=== PATIENT | female | born 2000 | race Caucasian/White ===

== ENCOUNTER 2025-07-30 13:45 | Emergency (ER) | payer OTHER, SELFPAY ==
[2025-07-30 13:47] VITALS: BP 131/85
[2025-07-30 14:19] LABS: Hematocrit 39.7 % (37.0-47.0); Hemoglobin 13.8 g/dL (12.0-16.0); Mean Corp Hgb Conc. 34.8 g/dL (33.0-37.0); Mean Corpuscular Volume 81.2 fL (81.0-99.0); Nucleated Red Blood Cells % 0 %; Platelet Count 246 10^3/uL (130-400); Red Cell Dist. Width 11.9 % (11.5-14.5)
[2025-07-30 14:24] LABS: HCG, Serum Qualitative Screen Negative
[2025-07-30 14:31] LABS: ALT (SGPT) 18 U/L (0-35); AST (SGOT) 20 U/L (14-36); Albumin 4.4 g/dl (3.5-5.0); Alkaline Phosphatase 45 U/L (38-126); Blood Urea Nitrogen 8 mg/dl (7-17); Calcium 9.1 mg/dl (8.4-10.2); Carbon Dioxide 21 mmol/L (22-30); Chloride 104 mmol/L (98-107); Glucose 96 mg/dl (70-99); Lipase 38 U/L (23-300); Potassium 3.8 mmol/L (3.5-5.1); Sodium 134 mmol/L (135-145); Total Protein 7.1 g/dl (6.3-8.2); eGFR > 60.00
[2025-07-30] MEDS: TORADOL 15 MG IV (16:14)
[2025-07-30] MEDS: ZOFRAN 4 MG IV (16:14)
[2025-07-30] MEDS: OMNIPAQUE 50 ML PO (16:14)
[2025-07-30] MEDS: NSS 1000 IV ×2 (16:15→18:52)
--- NOTE | 2025-07-30 16:24 | ED.GENMED ---
History of Present Illness
<JENNIFER Rudolph Last Filed: 07/30/25 18:02>
General
Chief Complaint: Abdominal Symptoms
Source: patient
Exam Limitations: none
Time Seen by Provider: 07/30/25 14:26
Nursing documentation reviewed up to this point in time: agreed with
History of Present Illness
History of Present Illness:
see MDM
Past History
<JENNIFER Rudolph Last Filed: 07/30/25 18:02>
Past History
ED Past Medical History: None
ED Past Surgical History: Tonsilectomy
Social History
Tobacco: Non-smoker
Alcohol: None
Drug: None
Personal: Single
Living: with family
Employment: Employed
Review of Systems
<JENNIFER Rudolph Last Filed: 07/30/25 18:02>
Review of Systems
Allergies reviewed?: Yes
All Other Systems: Not applicable
Phy Exam
<JENNIFER Rudolph Last Filed: 07/30/25 18:02>
Physical Exam
Physical Exam:
GENERAL: Alert , in no apparent distress
EYE: pupils equal and reactive
NECK: Supple
ENT: o/p clr, mmm.
CARDIAC: tachycardic
LUNGS: Clear breath sounds bilaterally, no acute respiratory distress, no wheezes/rales/rhonchi
ABDOMEN: Soft, flat, mild lower abd tendernes, no r/g, no cvat, normal bowel sounds
NEUROLOGICAL: Alert and oriented, no focal neuro deficits
SKIN: Warm and dry, skin intact.
MUSCULOSKELETAL: No edema, well perfused. neg veronica's sign
PSYCH: Normal and appropriate interaction.
Course
<JENNIFER Rudolph Last Filed: 07/30/25 18:02>
Orders/Labs/Results
Orders:
Orders
07/30/25 13:51
Test Result ONCE
07/30/25 13:56
Complete Blood Count/With Diff Urgent
Comprehensive Metabolic Panel Urgent
HCG, Serum Qualitative Screen Urgent
Comment: Notify provider if positive test present
Lactic Acid Q4H
Comment: ON ICE, CANCEL 2ND ORDER IF FIRST LACTIC ACID LEVEL <2
Lipase Urgent
07/30/25 14:49
0.9% Sodium Chloride 1000 ml [Nss] 1,000 ml IV BOLUS
Iohexol [Omnipaque] See Protocol PO NOW STA
Ketorolac [Toradol] 15 mg IV NOW STA
Ondansetron Injectable [Zofran] 4 mg IV NOW STA
07/30/25 14:50
CT Abd/pel W Iv And Oral Contr Urgent
Comment:
Reason For Exam: lower abd pain, fever, vomiting, diarrhea
07/30/25 17:15
Urinalysis Reflex To Culture Urgent
Date Specimen was Collected: 07/30/25
Time Specimen was Collected: 15:49
Urine Microscopic Reflex Cult Urgent
Urine Culture Urgent
MANI Source: U
Specimen Description:
Date Specimen was Collected: 07/30/25
Time Specimen was Collected: 15:49
07/30/25 17:17
Norovirus by PCR Urgent
MANI Source: Feces/Stool
Specimen Description:
Date Specimen was Collected: 07/30/25
Time Specimen was Collected: 17:16
STOOL [C difficile Antigen & Toxins] Urgent
MANI Source: Feces/Stool
Specimen Description:
Date Specimen was Collected: 07/30/25
Time Specimen was Collected: 17:16
Stool Culture Urgent
MANI Source: Feces/Stool
Specimen Description:
Date Specimen was Collected: 07/30/25
Time Specimen was Collected: 17:16
07/30/25 17:57
0.9% Sodium Chloride 1000 ml [Nss] 1,000 ml IV BOLUS
Abnormal Lab Results
07/30/25 07/30/25
13:56 17:15
Absolute Lymphs (auto) 1.1 L 10^3/uL
(1.2-3.4)
Absolute Monos (auto) 0.8 H 10^3/uL
(0.1-0.6)
Monocytes % 15.2 H %
(1.7-9.3)
Sodium 134 L mmol/L
(135-145)
Carbon Dioxide 21 L mmol/L
(22-30)
Urine Ketones 3+ A
(Negative)
Urine RBC 3-6 A /HPF
(0-2)
Urine Bacteria (Reflex) Moderate A
(Negative)
Urine Albumin (Reflex) 2+ A
(Neg - Trace)
07/30/25 13:56
07/30/25 13:56
Vital Signs
Initial and Last Documented VS:
Initial Vital Signs
Temp Pulse Resp BP Pulse Ox
38.6 C H 137 16 131/85 97
07/30/25 13:47 07/30/25 13:47 07/30/25 13:47 07/30/25 13:47 07/30/25 13:47
Last Documented Vital Signs
Temp Pulse Resp BP Pulse Ox
36.9 C 100 15 131/85 97
07/30/25 17:10 07/30/25 17:00 07/30/25 17:00 07/30/25 13:47 07/30/25 17:00
<Samuel Lombardi MD - Last Filed: 07/30/25 20:02>
Orders/Labs/Results
Orders:
Orders
07/30/25 13:51
Test Result ONCE
07/30/25 13:56
Complete Blood Count/With Diff Urgent
Comprehensive Metabolic Panel Urgent
HCG, Serum Qualitative Screen Urgent
Comment: Notify provider if positive test present
Lactic Acid Q4H
Comment: ON ICE, CANCEL 2ND ORDER IF FIRST LACTIC ACID LEVEL <2
Lipase Urgent
07/30/25 14:49
0.9% Sodium Chloride 1000 ml [Nss] 1,000 ml IV BOLUS
Iohexol [Omnipaque] See Protocol PO NOW STA
Ketorolac [Toradol] 15 mg IV NOW STA
Ondansetron Injectable [Zofran] 4 mg IV NOW STA
07/30/25 14:50
CT Abd/pel W Iv And Oral Contr Urgent
Comment:
Reason For Exam: lower abd pain, fever, vomiting, diarrhea
07/30/25 17:15
Urinalysis Reflex To Culture Urgent
Date Specimen was Collected: 07/30/25
Time Specimen was Collected: 15:49
Urine Microscopic Reflex Cult Urgent
Urine Culture Urgent
MANI Source: U
Specimen Description:
Date Specimen was Collected: 07/30/25
Time Specimen was Collected: 15:49
07/30/25 17:17
Norovirus by PCR Urgent
MANI Source: Feces/Stool
Specimen Description:
Date Specimen was Collected: 07/30/25
Time Specimen was Collected: 17:16
STOOL [C difficile Antigen & Toxins] Urgent
MANI Source: Feces/Stool
Specimen Description:
Date Specimen was Collected: 07/30/25
Time Specimen was Collected: 17:16
Stool Culture Urgent
MANI Source: Feces/Stool
Specimen Description:
Date Specimen was Collected: 07/30/25
Time Specimen was Collected: 17:16
07/30/25 17:57
0.9% Sodium Chloride 1000 ml [Nss] 1,000 ml IV BOLUS
Abnormal Lab Results
07/30/25 07/30/25
13:56 17:15
Absolute Lymphs (auto) 1.1 L 10^3/uL
(1.2-3.4)
Absolute Monos (auto) 0.8 H 10^3/uL
(0.1-0.6)
Monocytes % 15.2 H %
(1.7-9.3)
Sodium 134 L mmol/L
(135-145)
Carbon Dioxide 21 L mmol/L
(22-30)
Urine Ketones 3+ A
(Negative)
Urine RBC 3-6 A /HPF
(0-2)
Urine Bacteria (Reflex) Moderate A
(Negative)
Urine Albumin (Reflex) 2+ A
(Neg - Trace)
07/30/25 13:56
07/30/25 13:56
Vital Signs
Initial and Last Documented VS:
Initial Vital Signs
Temp Pulse Resp BP Pulse Ox
38.6 C H 137 16 131/85 97
07/30/25 13:47 07/30/25 13:47 07/30/25 13:47 07/30/25 13:47 07/30/25 13:47
Last Documented Vital Signs
Temp Pulse Resp BP Pulse Ox
36.9 C 100 15 131/85 97
07/30/25 17:10 07/30/25 17:00 07/30/25 17:00 07/30/25 13:47 07/30/25 17:00
Ilyalt;Miley Real PA-C - Last Filed: 07/30/25 18:02>
MDM/Problems Addressed
Differential Diagnosis Includes:
see MDM
MDM/Problems Addressed:
Note:
CHIEF COMPLAINT(S)
Diarrhea, vomiting, nausea, and febrile episodes.
HISTORY OF PRESENT ILLNESS
The patient is a 25 y/o female with no known relevant past medical history, presenting with symptoms of diarrhea and vomiting. The diarrhea began on 2 nights ago with diarrhea only, characterized as watery, yellow-green, and slimy, eventually
turning nearly black after 1 dose of pepto. next day, the patients symptoms transitioned predominantly to vomiting, with episodes totaling approximately five times. The patient reports persistent nausea. She has experienced low-grade fever, peaking
at 100�F, and has taken one dose of Tylenol, which was vomited. The abdominal symptoms include cramping in the lower part of the abdomen, particularly during bowel movements. The last menstrual period was around the of the month, with
regularity occurring every other month. There are no reports of recent travel abroad, antibiotic use, or significant illness exposure. 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
PAST SURGICAL HISTORY
The patient denies any past abdominal surgeries.
SOCIAL DETERMINANTS AFFECTING HEALTH
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
PLAN
1. Initiate intravenous fluid therapy for hydration.
2. Administer intravenous anti-emetic medication.
3. Perform a computed tomography (CT) scan of the abdomen with oral contrast if tolerated; adjust if the patient experiences emesis.
4. Collect a stool sample if the patient has a bowel movement during the visit.
5. Obtain urine samples to exclude other causes of symptoms.
DIFFERENTIAL DIAGNOSIS
The Differential Diagnosis includes, in no particular order and is not limited to:
1. Gastroenteritis
2. Food poisoning
3. Viral infection (e.g., norovirus)
4. Bacterial enteritis (e.g., Salmonella, Shigella)
5. Inflammatory bowel disease
6. Diverticulitis
7. Appendicitis
8. Urinary tract infection
9. Peptic ulcer disease
10. Gallbladder disease
25-year-old healthy female presents for nausea vomiting diarrhea and a fever over the last 48 hours with localized lower abdominal discomfort in the last 12 hours. Seems to be across her lower abdomen. She is not having any urinary symptoms. The
vomiting and diarrhea has subsided but she feels wiped out and dehydrated. Patient was febrile on arrival normotensive, nontoxic-appearing with mild to moderate lower abdominal tenderness and she did have tenderness over McBurney's point region.
There is no upper abdominal tenderness. She did not look significantly dehydrated was taking sips of water. She was given Toradol and a liter of fluid and had screening labs with a normal white count, normal electrolytes, urine with ketones. Her
temperature came down to 98.4, I ordered a second liter of fluid. She is waiting to go for CT scan. I suspect she has viral gastroenteritis. I did order stool studies however she has not had any diarrhea here. Suspect she will be able to be
discharged pending CT scan. Signed out to Dr. lombardi.
<Miley Real PA-C - Last Filed: 07/30/25 18:02>
*Pulse Oximetry
SaO2: 97
Oxygen Mode of Delivery: Room air
ED Attending Note
<Miley Real PA-C - Last Filed: 07/30/25 18:02>
-
Portions of this chart may have been created with voice recognition software.� Occasional wrong word or��sound alike� substitutions may have occurred due to the inherent limitations of voice recognition software.
<Samuel Lombardi MD - Last Filed: 07/30/25 20:02>
ED Attending Note
Patient seen and examined by attending physician: Yes
ED Attending Note:
I have seen and evaluated the patient with a [id number] encounter. I have spoken to the advance practicer provider and involved in the medical history, the physical exam, medical decision making.
Evaluation and management service: agree unless noted differently below.
Results interpretation: agree unless noted differently below.
Focused HPI: 25-year-old female with no significant chronic medical issues presents to the ER with her mother for evaluation of GI symptoms. Symptoms have been ongoing for the past few days she reports abdominal discomfort in the lower abdomen
associated with some vomiting and diarrhea. Febrile today. Came to the ER for assessment.
Physical exam: Awake and alert not in distress. Tachycardic but otherwise normal vitals. She was febrile in triage but defervesced by my assessment. Her abdomen is soft and nondistended mildly tender right slightly greater than left lower
quadrants. No palpable masses.
Medical Decision Makin-year-old female presents for lower abdominal pain associate with nausea, vomiting, diarrhea and fever. Labs were sent off including a CBC and a CMP which showed no clinically significant abnormalities. hCG is negative.
Urinalysis contaminated but no pyuria to suggest infection. We are awaiting results of CT.
CT reviewed shows findings consistent with gastroenteritis, normal-appearing appendix and certainly this fits with overall clinical picture. Patient remains well on clinical reassessment, vital signs within acceptable range. Tolerating p.o.
Stable for discharge advised regarding bland diet will prescribe some Zofran as needed. Spoke about follow-up plan and return precautions and all questions answered.
Discharge Plan
Departure
Patient Disposition: Home (Routine Discharge)
Date of Disposition: 07/30/25
Time of Disposition: 20:01
Patient with high blood pressure during this ER visit?: No
Discharge Problem:
Gastroenteritis
Instructions: [place] Diet, Nausea and Vomiting, Adult (DC)
Prescriptions:
New
ondansetron 4 mg tablet,disintegrating
4 mg PO TIDPRN PRN (Reason: nausea/vomiting) Qty: 14 0RF
Referrals:
Portia Retana PA-C [Family Provider, Family Practice] - Follow up in 1 week
Activity Restrictions/Additional Instructions:
Thank you for visiting the Emergency Department at [facility].
1. Please schedule a follow up appointment as directed. Call first thing tomorrow morning to make an appointment.
2. If indicated, please take your medications as instructed and indicated on discharge paperwork.
3. If any of your symptoms do not improve, or persist, or become more severe within 6-12 hours, please return to the emergency department for further care.
4. Please return to the emergency department if you develop a headache, neck pain/stiffness, fever greater than 100.4F, chest pain, shortness of breath, persistent nausea, vomiting, slurred speech, difficulty walking, numbness/tingling, weakness,
signs of infection or any other symptoms that are worrisome to you.
Please call [phone] if you have any questions.
Interventions
Interventions:
*Risk Screen - Suicide Last Done: 07/30/25 13:47
*Neglect/Abuse Screening Last Done: 07/30/25 13:47
*ED- Fall Risk Assessment Last Done: 07/30/25 16:20
AI-Sksram-Yxkaktsbbz Assessment Last Done: 07/30/25 16:20
Discharge Date and Time
Print Language: ETHIOPIAN
[2025-07-30 17:50] LABS: Urine Character Clear (Clear)
[2025-07-30 18:57] LABS: Urine Squamous Cell >20 /LPF (Few)
[2025-07-30 20:14] VITALS: BP 113/66
== END 2025-07-30 20:20 | disposition home or self-care (01) ==
LOC: EMR 13:45
PROVIDERS: Emergency Medicine; Physician Assistant; EMERGENCY PHYSICIAN Emergency Medicine; FAMILY PHYSICIAN Physician Assistant Medical
DX: K52.9 Noninfective gastroenteritis and colitis, unspecified (principal)
CPT/HCPCS: 99284; 96374; 96375; 96361 ×2; 74177; 80053; 81003; 81015; 83605; 83690; 84703; 85025; 87045; 87046; 87086; 87324; 87427; 87449; 87798; Q9967